=== PATIENT | male | born 1980 | race Caucasian/White ===

== ENCOUNTER 2021-11-17 11:21 | Outpatient (REF) | payer OTHER, SELFPAY ==
[2021-11-17 13:26] LABS: COVID-19 Test Positive (Negative)
== END 2021-11-17 11:22 | disposition home or self-care (01) ==
LOC: HO.LAB 11:21
PROVIDERS: Visit Provider Internal Medicine
DX: Z20.822 Contact with and (suspected) exposure to COVID-19 (principal)
CPT/HCPCS: 87635; C9803

== ENCOUNTER 2023-10-28 14:33 | Emergency (ER) | payer OTHER, SELFPAY ==
--- NOTE | ~2023-10-28 | CT_ITS ---
EXAMINATION: CT SOFT TISSUE NECK WITH CONTRAST CLINICAL INFORMATION: Right lower dental bicuspid pain. Rule out dental abscess. COMPARISON: None available. TECHNIQUE: Following the intravenous administration of 100 mL of Omnipaque 350 intravenous contrast, helical imaging was performed in the axial plane with generation of coronal and sagittal reformatted images. This CT examination was performed using dose optimization techniques as appropriate, variously including the following: *Automated exposure control *Adjustment of mA and/or kV according to patient size (this includes techniques or standardized protocols for targeted exams where dose is matched to indication/reason for exam; i.e. extremities or head) *Use of iterative reconstruction technique DLP: 793 mGy-cm FINDINGS: Visualized intracranial brain parenchyma appears normal. The optic globes, optic nerve and the bony orbits are intact. The paranasal sinuses are well aerated with small polyps or retention cyst bilateral sphenoid, left maxillary sinuses. The mastoid air cells are well-aerated. Bilateral TM joints are symmetric and normal. The mandible is intact. There are dental filling defects along the opposing surfaces of right lower bicuspids and left second bicuspid and first premolar tooth. There is small area of right than left cyst measuring 2.5 cm in length and approximately 4 mm in depth on axial slice 64/3. This results in mild right buccal soft tissue swelling/edema. No serous fluid collection or abscess seen along the alveolar side. There is moderate superficial and deep soft tissue swelling adjacent to the right mandible. Several dental amalgam related fillings are seen throughout the maxilla and mandible lytic the oropharynx and the oral cavity appears unremarkable. The parapharyngeal space is normal. Visualized bilateral parotid, submandibular glands and the thyroid lobes are symmetrical and normal. Small bilateral neck lymph nodes are seen.. The airways widely patent. The lung apices are clear. The thoracic arch appears unremarkable. Pression: Significant dental caries along the lower jaw teeth. There is small right lower mandibular buccal abscess with moderate soft tissue edema/cellulitis. Small polyps/retention cyst in the sinuses as described above. Reactive nonsuspicious bilateral reactive neck lymph nodes.
[2023-10-28 14:37] VITALS: BP 175/112; PULSE 108; RESP 18; TEMP 36.5; O2SAT 99; BMI 34.3
--- NOTE | 2023-10-28 14:37 | ED.DENTAL ---
HPI - Dental/Oral General Chief complaint: Dental/Oral Stated complaint: Tooth infection Time Seen by Provider: 10/28/23 16:38 Source: patient Mode of arrival: ambulatory Limitations: no limitations History of Present Illness HPI Narrative: 42 year old male with no significant pmhx presents to the ED today for evaluation of right lower dental pain x3 days. Reports dental pain 2 wks ago after cracking his tooth. At that time he took an unknown dosage of his friend's penicillin pills hoping that would help. He was not evaluated by medical personnel at that time. His dental pain seemed to resolve however began worsening over the last 3 days. Reports swelling to the right side of his face/ neck. Has been taking motrin at home without relief of pain. 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 Denies fever chills, dysphagia, odynophagia. Does not follow with a dentist regularly. Related Data Previous Rx's Medication Instructions Recorded amoxicillin 875 mg-potassium 1 tab PO BID 14 days #28 tabs 10/28/23 clavulanate 125 mg tablet Allergies Allergy/AdvReac Type Severity Reaction Status Date / Time No Known Allergies Allergy Unverified 07/22/20 17:17 Review of Systems Review of Systems: Constitutional: No fever, chills, fatigue, night sweats, weight changes ENT/Mouth: No ear pain, hearing loss, nasal congestion, sinus pain, rhinorrhea, sore throat, +dental pain Eyes: No eye pain, swelling, redness, vision changes, discharge Cardio: No chest pain, palpitations, MATHUR, orthopnea, peripheral edema Pulm: No SOB, cough, sputum, wheezing, dyspnea, hemoptysis GI: No nausea, vomiting, hematemesis, abdominal pain, diarrhea, constipation, hematochezia, melena : No irregular bleeding, dysuria, frequency, urgency, hesitancy, hematuria, flank pain, urinary flow changes, urinary incontinence or retention MSK: No back pain, neck pain, joint pain, myalgias Skin: No lesions, rashes Neuro: No weakness, numbness, paresthesias, LOC, dizziness, headache All other systems reviewed and are negative. [facility] Past Medical History Attestation statement: The following information was validated with the patient. Source: old records reviewed and nursing notes reviewed Social History Social History Smoked in Last 30 Days: Yes Use of substances other than those prescribed or required for medical reasons: No Advance Directives: No Advance Directives Information Provided: Yes Physical Exam Vital Signs: Vital Signs: Last Vital Signs Temp 98.2 F 10/28/23 19:13 Pulse 78 10/28/23 21:44 Resp 20 10/28/23 19:13 BP 159/78 H 10/28/23 21:44 Pulse Ox 98 10/28/23 19:13 O2 Del Method Room Air 10/28/23 19:13 BMI result Body Mass Index 34.3 Vital signs notable for tachycardia and hypertension Const: General: cooperative, comfortable, no acute distress, alert and awake Orientation/consciousness: patient oriented x3 Limitations: no limitations HEENT: Other: + No facial edema. Tongue and lips wnl + multiple dental caries and poor dentition. right lower 1st bicuspid with periapical swelling. Edema noted to right buccal mucosa. Minimal edema to lingual ginginva. No pointing. No active bleeding/ discharge. TTP. No palpable fluctuance. + Posterior oropharynx without erythema/edema. Uvula midline. Controlling secretions and speaking in complete sentences + No submandublar or submental LAD + right cervical LAD Head: Yes normal to inspection Ears: hearing grossly normal bilaterally, external ears normal, TM's normal bilaterally, EAC's normal, mastoids normal and no periauricular adenopathy Eyes: General: appearance normal, both eyes and all related structures Conjunctivae: conjunctivae normal Sclerae: sclerae normal Neck: Neck: Yes normal visual inspection Resp: Effort & Inspection: normal respiratory effort Auscultation: clear to auscultation bilaterally Cardio: Rate: regular rate Rhythm: regular rhythm Peripheral pulses: radial pulses present Skin: General skin exam: no rashes or lesions noted Neuro: General: patient oriented x3, gait normal and moves all extremities Extrem: General: Yes normal to inspection Course Course Course Narrative: This is an RME: Additional HPI, ROS, PE not included below will be deferred to primary provider. Patient is a 42-year-old male who presents emergency department for evaluation of dental pain right lower, reports friend had penicillin, he took some for 4 days, unknown dosage, noticed some improvement, but worse over the past few days. Has pain, swelling, known dental caries. Does not follow a dentist regularly. Denies neck pain, chest pain, ear pain, fevers, chills. Noted to be hypertensive today 175/112, denies hx of HTN. Plan: labs, placed in WR pending bed availability. Reevaluation(s) Reevaluation #1: 1655-- CBC with slight leukocytosis to 14.7. No left shift. Chemistry without acute electrolyte abnormality requiring intervention. Renal function WNL. Liver function WNL. Concern for infection at this time. Vital signs notable for tachycardia to 108. Afebrile. Will obtain lactic acid and blood cultures. IV antibiotics ordered. Fluids ordered. Awaiting CT soft tissue/facial bones. 1938-- CT soft tissues neck showing significant dental caries along the lower jaw teeth and small right lower mandibular buccal abscess with moderate soft tissue edema/cellulitis. They are reactive nonsuspicious bilateral neck lymph nodes. On exam, there is no appreciable fluctuance along the right pupil mucosa to indicate abscess that would warrant drainage. >> Discussed case with my attending physician Dr. Staples who agrees with outpatient treatment with oral antibiotics and dentist follow-up. >> informed patient of CT results. Patient states that he is still having dental discomfort. He completed dose of Unasyn in the ED. will send amoxicillin to patient's pharmacy for dental infection. >> patient also noted to be hypertensive in ED. denies current diagnosis of hypertension. Does not currently take medications for this. BP noted to be elevated after IV fluid administration BP likely additionally elevated secondary to pain and IV fluids. Will give a dose of losartan in recheck BP. 2038-- repeat blood pressure 186/116. Discussed case with my colleagues, Titi RAMÍREZ who patient will be signed out to pending repeat blood pressure and disposition. Reevaluation #2: Blood pressure improved. Patient informed to document his blood pressure in the morning and afternoon and show them to PCP to see if he should be started on meds. IN ED elevated blood pressure most likely due to pain. Patient has no neuro symptosm. Safe for discharge. Time: 09:53 Medications Administered Discontinued Medications Generic Name Dose Route Start Last Admin Trade Name Freq PRN Reason Stop Dose Admin Acetaminophen 975 mg 10/28/23 22:09 10/28/23 22:13 Acetaminophen 325 Mg Tablet PO 10/28/23 22:10 975 mg ONCE ONE Administration Ampicillin Sodium/Sulbactam 100 mls @ 200 mls/hr 10/28/23 16:52 10/28/23 20:28 Sodium 3 gm/ Sodium Chloride IV 10/28/23 17:21 Infused ONCE ONE Infusion Sodium Chloride 3,840 mls @ 3,840 mls/hr 10/28/23 16:55 10/28/23 20:28 Ns 30 ml/kg infuse over 1 hr (3840 ml) 10/28/23 17:54 Infused IV Infusion .Q1H STA Iohexol 100 ml 10/28/23 17:29 10/28/23 17:29 Iohexol 350 Mg/Ml 100 Ml Infus..Btl IV 10/28/23 17:30 70 ml ONCE ONE Administration Ketorolac Tromethamine 30 mg 10/28/23 16:53 10/28/23 18:16 Ketorolac Tromethamine 30 Mg/Ml Vial IVPUSH 10/28/23 16:54 30 mg ONCE ONE Administration Losartan Potassium 25 mg 10/28/23 19:46 10/28/23 20:06 Losartan Potassium 25 Mg Tablet PO 10/28/23 19:47 25 mg ONCE ONE Administration Protocol Medical Decision Making Medical Decision Making MDM Narrative: 42 year old male with no significant pmhx presents to the ED today for evaluation of right lower dental pain x3 days. Vital signs notable for tachycardia. Hypertensive. Afebrile. No facial edema. Tongue and lips wnl. There are multiple dental caries and poor dentition. right lower 1st bicuspid with periapical swelling. Edema noted to right buccal mucosa. Minimal edema to lingual ginginva. No pointing. No active bleeding/ discharge. TTP. No palpable fluctuance. Posterior oropharynx without erythema/edema. Uvula midline. Controlling secretions and speaking in complete sentences. No submandublar or submental LAD. there is right cervical LAD. Clinical concern for dental/ periapical abscess/infection, apthous stomatitis. Unlikely mono, herpes, sialadenitis, sialolithiasis, UNDERWRITING SALES REPRESENTATIVE, retropharyngeal abscess, deep neck infection, osteomyelitis, facial cellulitis/ abscess, lymphoma. Plan for pain control, imaging, abx, and re-evaluation. Differential Diagnosis Differential Diagnoses: The differential diagnosis associated with the presentation includes as above. Admission/Observation Consideration of admission/observation: Escalation of care including admission/observation considered In this patient with dental abscess and increased WBC count, admission was considered. Lab Data MDM Lab Attestation statement: I reviewed the patient's lab results. as above. 10/28/23 15:06 10/28/23 15:06 Labs: Lab Results 10/28/23 10/28/23 Range/Units 15:06 17:12 WBC 14.7 H (4.8-10.8) X10*3/uL RBC 5.19 (4.60-5.80) X10*6/uL Hgb 16.7 (14.0-18.0) g/dl Hct 48.2 (42.0-52.0) % MCV 92.9 (80.0-98.0) fL MCH 32.2 (27.0-33.0) pg MCHC 34.6 (31.0-36.0) g/dl RDW 12.1 (11.0-16.0) % Plt Count 158 L (160-400) X10*3/uL MPV 11.5 (9.4-12.4) fL Immature Gran % (Auto) 0.3 (0.0-0.4) % Neut % (Auto) 76.5 H (45-73) % Lymph % (Auto) 11.0 L (20-40) % [place] % (Auto) 8.1 (2-11) % Eos % (Auto) 3.7 (0-4) % Baso % (Auto) 0.4 (0-2) % Lymph # (Auto) 1.6 (1.2-4.9) X10*3/uL [place] # (Auto) 1.2 (0.1-1.2) X10*3/uL Eos # (Auto) 0.6 H (0.0-0.4) X10*3/uL Baso # (Auto) 0.1 (0.0-0.2) X10*3/uL Abs Immat Gran (auto) 0.05 H (0.00-0.03) X10*3/uL Absolute Neuts (auto) 11.2 H (2.0-8.3) x10*3/uL Absolute Nucleated RBC 0.000 (0.0-0.012) X10*3/uL Nucleated RBC % (auto) 0.0 (0.0-0.2) /100WBC Sodium 143 (135-145) mmol/L Potassium 4.0 (3.3-5.1) mmol/L Chloride 110 H (96-108) mmol/L Carbon Dioxide 24 (22-29) mmol/L Anion Gap 13 (12-20) BUN 12 (9-16) mg/dL Creatinine 0.92 (0.5-1.4) mg/dL Estim Creat Clear Calc 154.3 Estimated GFR > 60 Random Glucose 104 (60-115) mg/dL Lactic Acid 0.8 (0.5-2.0) mmol/L Calcium 9.8 (8.4-10.2) mg/dL Total Bilirubin 0.7 (0.0-1.0) mg/dL AST 20 (5-37) U/L ALT 40 (0-40) U/L Alkaline Phosphatase 85 (39-117) U/L Total Protein 7.5 (6.5-8.0) g/dL Albumin 4.2 (3.5-5.0) g/dL Independent Interpretation I performed an independent interpretation of an: EKG and CT Scan Interpretation: EKG showing normal sinus rhythm with a rate of 88 beats per minute, QT 344, QTC 416, 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 CT soft tissue neck showing soft tissue edema, agree with radiologist's interpretation. Radiology Impression Discussion of test interpretation with radiology: I have reviewed the radiologist's reading. Radiologist Impression: CT soft tissue neck with con: Visualized intracranial brain parenchyma appears normal. The optic globes, optic nerve and the bony orbits are intact. The paranasal sinuses are well aerated with small polyps or retention cyst bilateral sphenoid, left maxillary sinuses. The mastoid air cells are well-aerated. Bilateral TM joints are symmetric and normal. The mandible is intact. There are dental filling defects along the opposing surfaces of right lower bicuspids and left second bicuspid and first premolar tooth. There is small area of right than left cyst measuring 2.5 cm in length and approximately 4 mm in depth on axial slice 64/3. This results in mild right buccal soft tissue swelling/edema. No serous fluid collection or abscess seen along the alveolar side. There is moderate superficial and deep soft tissue swelling adjacent to the right mandible. Several dental amalgam related fillings are seen throughout the maxilla and mandible lytic the oropharynx and the oral cavity appears unremarkable. The parapharyngeal space is normal. Visualized bilateral parotid, submandibular glands and the thyroid lobes are symmetrical and normal. Small bilateral neck lymph nodes are seen.. The airways widely patent. The lung apices are clear. The thoracic arch appears unremarkable. Impression: Significant dental caries along the lower jaw teeth. There is small right lower mandibular buccal abscess with moderate soft tissue edema/cellulitis. Small polyps/retention cyst in the sinuses as described above. Reactive nonsuspicious bilateral reactive neck lymph nodes. External Record Review External record reviewed: Inpatient record Prescription Management I considered prescription management with: Pain Medication and Antibiotic Chronic Conditions Patient?s care impacted by: Other (dental caries) Critical Care Time Critical Care Time Critical Care Time: Yes Total Critical Care Time: 40 Attestation: Critical care time in the amount of 40 minutes has been provided to the patient in terms of direct patient care, frequent reevaluation, review and interpretation of medical data and results, and management of potentially life-threatening conditions. This is all outside of any medical procedures. Discharge Plan Discharge Clinical Impression: Dental abscess, Hypertension Patient Disposition: Home, Self-Care Instructions: Dental Abscess (ED), Root Canal (DC) Additional Instructions: You have a dental abscess. Augmentin is an antibiotic that has been sent to your pharmacy. Take this as prescribed and do not miss any doses as infection can worsen or return. YOU NEED TO FOLLOW-UP WITH A DENTIST. YOU HAVE BEEN PROVIDED WITH A REFERRAL. CALL THEM TO MAKE AN APPOINTMENT. THEY WILL NOT CALL YOU. If symptoms persist or worsen despite antibiotic treatment, please return to the emergency department. The case of an emergency call 911. Additionally were noted to have high blood pressure in the emergency department. Losartan is an antihypertensive that has been sent to your pharmacy. Take this daily to help normalize your blood pressure. YOU NEED TO FOLLOW-UP WITH A PRIMARY CARE PROVIDER. YOU HAVE BEEN PROVIDED WITH A REFERRAL FOR 1. CALL THEM TO MAKE AN APPOINTMENT. THEY WILL NOT CALL YOU. If you began to develop chest pain, dizziness, headache, vision changes, palpitations please return to the emergency department. In the case of an emergency call 911. Prescriptions: New amoxicillin-pot clavulanate 875-125 mg tablet 1 tab PO BID 14 Days Qty: 28 0RF [place]: [facility] [place] [facility] [place] [facility] [place] Group] Maude Reyes DMD, MS [Dentist] - Interventions: ED Discharge Assessment Last Done: 10/28/23 22:29 Discharge Date/Time: 10/28/23 22:29 Print Language: [place]
--- NOTE | 2023-10-28 14:43 | ECG_ITS ---
Test Reason : HTN Blood Pressure : / mmHG Vent. Rate : 088 BPM Atrial Rate : 088 BPM P-R Int : 152 ms QRS Dur : 078 ms QT Int : 344 ms P-R-T Axes : 027 -05 012 degrees QTc Int : 416 ms Normal sinus rhythm Possible Left atrial enlargement Inferior infarct (cited on or before 13-AUG-2017) Anterior infarct (cited on or before 13-AUG-2017) Abnormal ECG When compared with ECG of 13-AUG-2017 01:49, Questionable change in initial forces of Anteroseptal leads Referred By: Suni Lang Electronically Signed By:ANIYAH FRIED MD
[2023-10-28 15:17] LABS: MANUAL DIFF FLAG NO
[2023-10-28 15:18] LABS: Basophils Absolute Auto 0.1 X10*3/uL (0.0-0.2); Basophils Percent Auto 0.4 % (0-2); Eosinophils Absolute Auto 0.6 X10*3/uL (0.0-0.4); Eosinophils Percent Auto 3.7 % (0-4); Hematocrit 48.2 % (42.0-52.0); Hemoglobin 16.7 g/dl (14.0-18.0); Imm Gran Abs Auto 0.05 X10*3/uL (0.00-0.03); Imm Gran Pct Auto 0.3 % (0.0-0.4); Lymphocytes Absolute Auto 1.6 X10*3/uL (1.2-4.9); Mean Corpuscular HGB Conc 34.6 g/dl (31.0-36.0); Mean Corpuscular Hemoglobin 32.2 pg (27.0-33.0); Mean Corpuscular Volume 92.9 fL (80.0-98.0); Mean Platelet Volume 11.5 fL (9.4-12.4); Monocytes Absolute Auto 1.2 X10*3/uL (0.1-1.2); Monocytes Percent Auto 8.1 % (2-11); Neutrophils Absolute Auto 11.2 x10*3/uL (2.0-8.3); Neutrophils Percent Auto 76.5 % (45-73); Platelet Count 158 X10*3/uL (160-400); Red Blood Count 5.19 X10*6/uL (4.60-5.80); Red Cell Distribution Width 12.1 % (11.0-16.0); White Blood Count 14.7 X10*3/uL (4.8-10.8)
[2023-10-28 15:32] LABS: Alanine Aminotransferase 40 U/L (0-40); Albumin Level 4.2 g/dL (3.5-5.0); Alkaline Phosphatase 85 U/L (39-117); Anion Gap 13 (12-20); Aspartate Amino Transferase 20 U/L (5-37); Bilirubin Total 0.7 mg/dL (0.0-1.0); Blood Urea Nitrogen 12 mg/dL (9-16); Calcium 9.8 mg/dL (8.4-10.2); Carbon Dioxide 24 mmol/L (22-29); Chloride 110 mmol/L (96-108); Creatinine Clr Calc Pharmacy 154.3; Estimated Glomerular Filt Rate > 60; Glucose Random 104 mg/dL (60-115); Sodium 143 mmol/L (135-145); Total Protein 7.5 g/dL (6.5-8.0)
--- NOTE | 2023-10-28 16:55 | ED.DENTAL ---
HPI - Dental/Oral General Chief complaint: Dental/Oral Stated complaint: Tooth infection Time Seen by Provider: 10/28/23 16:38 Related Data Allergies Allergy/AdvReac Type Severity Reaction Status Date / Time No Known Allergies Allergy Unverified 07/22/20 17:17 [facility] Social History Social History Advance Directives: No Advance Directives Information Provided: Yes Physical Exam Vital Signs: Vital Signs: Last Vital Signs Temp 97.7 F 10/28/23 14:37 Pulse 108 H 10/28/23 14:37 Resp 18 10/28/23 14:37 BP 175/112 H 10/28/23 14:37 Pulse Ox 99 10/28/23 14:37 O2 Del Method Room Air 10/28/23 14:37 BMI result Body Mass Index 34.3 Course Course Course Narrative: 165-- CBC with slight leukocytosis to 14.7. No left shift. Chemistry without acute electrolyte abnormality requiring intervention. Renal function WNL. Liver function WNL. concern for infection at this time. Vital signs notable for tachycardia to 108. Afebrile. Will obtain lactic acid and blood cultures. IV antibiotics ordered. Fluids ordered. Awaiting CT soft tissue/facial bones. Medical Decision Making Lab Data 10/28/23 15:06 10/28/23 15:06 Labs: Lab Results 10/28/23 Range/Units 15:06 WBC 14.7 H (4.8-10.8) X10*3/uL RBC 5.19 (4.60-5.80) X10*6/uL Hgb 16.7 (14.0-18.0) g/dl Hct 48.2 (42.0-52.0) % MCV 92.9 (80.0-98.0) fL MCH 32.2 (27.0-33.0) pg MCHC 34.6 (31.0-36.0) g/dl RDW 12.1 (11.0-16.0) % Plt Count 158 L (160-400) X10*3/uL MPV 11.5 (9.4-12.4) fL Immature Gran % (Auto) 0.3 (0.0-0.4) % Neut % (Auto) 76.5 H (45-73) % Lymph % (Auto) 11.0 L (20-40) % [place] % (Auto) 8.1 (2-11) % Eos % (Auto) 3.7 (0-4) % Baso % (Auto) 0.4 (0-2) % Lymph # (Auto) 1.6 (1.2-4.9) X10*3/uL [place] # (Auto) 1.2 (0.1-1.2) X10*3/uL Eos # (Auto) 0.6 H (0.0-0.4) X10*3/uL Baso # (Auto) 0.1 (0.0-0.2) X10*3/uL Abs Immat Gran (auto) 0.05 H (0.00-0.03) X10*3/uL Absolute Neuts (auto) 11.2 H (2.0-8.3) x10*3/uL Absolute Nucleated RBC 0.000 (0.0-0.012) X10*3/uL Nucleated RBC % (auto) 0.0 (0.0-0.2) /100WBC Sodium 143 (135-145) mmol/L Potassium 4.0 (3.3-5.1) mmol/L Chloride 110 H (96-108) mmol/L Carbon Dioxide 24 (22-29) mmol/L Anion Gap 13 (12-20) BUN 12 (9-16) mg/dL Creatinine 0.92 (0.5-1.4) mg/dL Estim Creat Clear Calc 154.3 Estimated GFR > 60 Random Glucose 104 (60-115) mg/dL Calcium 9.8 (8.4-10.2) mg/dL Total Bilirubin 0.7 (0.0-1.0) mg/dL AST 20 (5-37) U/L ALT 40 (0-40) U/L Alkaline Phosphatase 85 (39-117) U/L Total Protein 7.5 (6.5-8.0) g/dL Albumin 4.2 (3.5-5.0) g/dL
[2023-10-28 17:29] LABS: Lactic Acid 0.8 mmol/L (0.5-2.0)
[2023-10-28] MEDS: iohexoL 350 MG/ML 100 ML INFUS..BTL IV (17:29)
[2023-10-28] MEDS: Ampicillin Sodium/Sulbactam Na 3 GM in 0.9 % Sodium Chloride 100 ML IV (18:00)
[2023-10-28] MEDS: Ketorolac Tromethamine 30 MG/ML VIAL IVPUSH (18:16)
[2023-10-28 19:13] VITALS: BP 192/129; PULSE 88; RESP 20; TEMP 36.8; O2SAT 98
[2023-10-28] MEDS: Losartan Potassium 25 MG TABLET PO (20:06)
[2023-10-28 20:33] VITALS: BP 186/116; PULSE 86
[2023-10-28 21:44] VITALS: BP 159/78; PULSE 78
[2023-10-28] MEDS: Acetaminophen 325 MG TABLET 975 MG PO (22:13)
--- NOTE | 2023-10-28 22:28 | PC.NURSE ---
pt medicated according to mar for 06/14 pain. pt calm and cooperative. pt ambulatory at discharge. pt provided with discharge packet. pt verbalized understanding of discharge plan
== END 2023-10-28 22:29 | disposition home or self-care (01) ==
PROVIDERS: Nurse Practitioner Family; Physician Assistant Medical; Emergency Provider Emergency Medicine
DX: K04.7 Periapical abscess without sinus (principal); K02.9 Dental caries, unspecified; I10 Essential (primary) hypertension
CPT/HCPCS: 36415; 70491; 80053; 83605; 85025; 87040; 93005; 96361; 96374; 96375; 99285; J0295; J1885; Q9967

== ENCOUNTER → 2023-10-28 14:43 | Outpatient (BNV) | payer OTHER, MEDICAID, SELFPAY | PROVIDERS: Emergency Provider Emergency Medicine; Visit Provider Internal Medicine Cardiovascular Disease | DX: I10 Essential (primary) hypertension (principal) | CPT/HCPCS: 93010 ==

== ENCOUNTER 2024-11-03 04:34 | Emergency (ER) | payer OTHER, SELFPAY ==
--- NOTE | ~2024-11-03 | XR_ITS ---
CLINICAL HISTORY: chest pain 2 view chest x-ray Comparison: CR - CHEST 2 VIEWS [id number] - 08/13/2017 04:06 AM EDT Findings: Lungs are well inflated. Mediastinal contours, cardiac silhouette, and pulmonary vasculature are within normal limits. No focal areas of consolidation. No rib fracture, pneumothorax, or pleural effusion IMPRESSION: 1. No acute findings. This document has been electronically signed by: Choco Barnes MD on 11/03/2024 07:51:29
[2024-11-03 04:39] VITALS: BP 160/100; PULSE 99; O2SAT 99
[2024-11-03 04:43] VITALS: BP 149/97; PULSE 86; RESP 20; TEMP 37; O2SAT 99; BMI 35.1
[2024-11-03 06:00] VITALS: BP 139/98; PULSE 89; RESP 15; TEMP 36.4; O2SAT 99
--- NOTE | 2024-11-03 06:41 | ED_ITS ---
HPI - General Adult General Chief complaint: Anxiety Stated complaint: ANXIETY Time Seen by Provider: 11/03/24 06:38 Source: patient and EMS Mode of arrival: EMS Limitations: no limitations History of Present Illness ED Provider: Shira Vizcaino PA-C HPI narrative: Patient is a 43 year old assigned male at with a history of tobacco use presenting to the emergency department today with episodes of palpations. Patient states that he was drinking alcohol last night and woke up early this morning with intermittent palpitations. Patient states that he went outside and took a few drags of his cigarette but the palpitations continued. Patient states that they have improved somewhat since being here but have not resolved. Patient denies any dizziness, lightheadedness, abdominal pain, nausea, vomiting, fever, chills, blurry vision, double vision, loss of vision, chest pain, difficulty breathing, shortness of breath, back pain, night sweats, pain with urination, increased urinary frequency, increased urinary urgency, blood in his urine or stool, syncope or a near syncopal episode, recent trauma or falls, bowel incontinence, bladder incontinence, or any other complaints at this time. Relieving factors: none Exacerbating factors: none Associated symptoms: denies other symptoms Treatments prior to arrival: none Related Data Previous Rx's ?Medication ?Instructions ?Recorded amoxicillin 875 mg-potassium 1 tab PO BID 14 days #28 tabs 10/28/23 clavulanate 125 mg tablet Allergies Allergy/AdvReac Type Severity Reaction Status Date / Time No Known Allergies Allergy Unverified 11/03/24 04:45 Review of Systems 2 Constitutional: Constitutional: Reports no additional constitutional complaints, Denies chills, Denies fever(s) and Denies night sweats Eyes: Eyes: Reports no additional eye complaints, Denies blurry vision, Denies change in vision, Denies diplopia, Denies eye discharge, Denies loss of vision and Denies eye pain ENT: Denies dizziness Cardiovascular: Cardiovascular: Reports no additional cardiovascular complaints, Denies chest pain, Denies lightheadedness, Denies Loss of Consciousness, Reports palpitations and Denies dyspnea Respiratory: Respiratory: Reports no additional respiratory complaints and Denies dyspnea Gastrointestinal: Gastrointestinal: Reports no additional gastrointestinal complaints, Denies abdominal pain, Denies melena, Denies hematochezia, Denies change in bowel habits and Denies change in stool character Genitourinary: Genitourinary: Reports no additional male genitourinary complaints, Denies hematuria, Denies oliguria, Denies difficulty urinating, Denies dysuria, Denies urinary frequency, Denies urinary hesitancy, Denies urinary incontinence and Denies urinary urgency Musculoskeletal: Musculoskeletal: Reports no additional musculoskeletal complaints, Denies numbness and Denies tingling Neurologic: Denies dizziness, Denies loss of vision, Denies numbness and Denies tingling Psychiatric: Psychiatric: Reports no additional psychiatric complaints Endocrine: Endocrine: Reports no additional endocrine complaints and Reports palpitations Hematologic/Lymphatic: Hematologic/Lymphatic: Reports no additional hematologic/lymphatic complaints Allergic/Immunologic: Allergic/Immunologic: Reports no additional allergic/immunologic complaints PMFSH Past Medical History Attestation statement: The following information was validated with the patient. Source: old records reviewed and nursing notes reviewed Social History Social History Substance Use Type: Marijuana Physical Exam ED Vital Signs: Vital Signs - 24 hr 11/03/24 04:43 11/03/24 06:00 11/03/24 08:59 Temperature 98.6 F 97.6 F 97.6 F Pulse Rate 86 89 89 Respiratory Rate 20 15 15 Blood Pressure 149/97 H 139/98 H 139/98 H Pulse Oximetry 99 99 99 Oxygen Delivery Method Room Air Room Air Room Air BMI result Body Mass Index 35.1 Const General: cooperative, no acute distress, alert and awake Nutritional Appearance: well nourished Orientation/consciousness: patient oriented x3 Limitations: no limitations [facility] Head: Yes normal to inspection and Yes atraumatic Ears: hearing grossly normal bilaterally and external ears normal General nose exam: Normal external nose present, no nasal discharge noted and no epistaxis Face and sinus: Yes normal facial exam, No abrasion and No laceration Mouth: Normal oral and palatal mucosa present, no drooling and no muffled voice Eyes General: appearance normal, both eyes and all related structures Periorbital: periorbital findings normal Eyelids: Yes eyelids normal Conjunctivae: conjunctivae normal Pupils: Equal, round and reactive pupils present EOM: EOMs intact bilaterally Neck Neck: Yes normal visual inspection, Yes full ROM and Yes no lymphadenopathy Chest Chest palpation & inspection: normal inspection of the chest Resp Effort & Inspection: normal respiratory effort and able to speak in complete sentences GI Inspection: Yes normal to inspection Neuro General: patient oriented x3 and moves all extremities Cranial nerves: Yes Equal, round and reactive pupils present Cognition (Neuro): normal cognition Extrem General: Yes normal to inspection, Yes full ROM and Yes capillary refill normal Psych Appearance: grossly normal Mental Status: mental status grossly normal Affect: normal affect Attitude: cooperative Thought process: Normal thought process present Thought content: Normal thought content present Insight: Good insight present (Psych) Medications Administered Discontinued Medications Generic Name Dose Route Start Last Admin Trade Name Vani PRN Reason Stop Dose Admin Lorazepam 2 mg 11/03/24 06:51 11/03/24 07:02 Lorazepam 1 Mg Tablet PO 11/03/24 06:52 2 mg ONCE ONE Administration Medical Decision Making Medical Decision Making [facility] Narrative: Patient is a 43 year old assigned male at with a history of tobacco use presenting to the emergency department today with episodes of palpations. Patient's physical exam was unremarkable. Patient's blood work was unremarkable. Patient's EKG was unremarkable. Patient's chest x-ray showed no acute process. I explained my physical exam findings as well as all test results to the patient. I answered all questions asked by the patient. I stressed the importance of the patient taking his medication as directed (either prescribed or as the over the counter packaging recommends). I stressed the importance of the patient following up with his primary care provider. I stressed the importance of the patient returning to the emergency department immediately if his symptoms were to worsen or if he were to develop any dizziness, shortness of breath, difficulty breathing, chest pain, blurry vision, loss of vision, nausea, vomiting, abdominal pain, fever, chills, back pain, or any other complaints. Patient verbalized agreement and understanding with this treatment plan and discharge. Differential Diagnosis Differential Diagnoses: The differential diagnosis associated with the presentation includes Palpitations Anxiety NSTEMI STEMI Admission/Observation Consideration of admission/observation: Escalation of care including admission/observation considered Patient would have been admitted to the hospital had his work up had any findings where hospital admission was appropriate and his clinical presentation warranted hospital admission. Lab Data [facility] Lab Attestation statement: I reviewed the patient's lab results. My interpretation of these results are in the [facility] Rationale portion of this note. 11/03/24 07:08 11/03/24 07:08 Labs: Lab Results 11/03/24 Range/Units 07:08 WBC 9.1 (4.8-10.8) X10*3/uL RBC 5.38 (4.60-5.80) X10*6/uL Hgb 17.6 (14.0-18.0) g/dl Hct 49.7 (42.0-52.0) % MCV 92.4 (80.0-98.0) fL MCH 32.7 (27.0-33.0) pg MCHC 35.4 (31.0-36.0) g/dl RDW 12.0 (11.0-16.0) % Plt Count 145 L (160-400) X10*3/uL MPV 12.3 (9.4-12.4) fL Immature Gran % (Auto) 0.4 (0.0-0.4) % Neut % (Auto) 64.2 (45-73) % Lymph % (Auto) 20.0 (20-40) % [place] % (Auto) 9.6 (2-11) % Eos % (Auto) 4.7 H (0-4) % Baso % (Auto) 1.1 (0-2) % Lymph # (Auto) 1.8 (1.2-4.9) X10*3/uL [place] # (Auto) 0.9 (0.1-1.2) X10*3/uL Eos # (Auto) 0.4 (0.0-0.4) X10*3/uL Baso # (Auto) 0.1 (0.0-0.2) X10*3/uL Abs Immat Gran (auto) 0.04 H (0.00-0.03) X10*3/uL Absolute Neuts (auto) 5.8 (2.0-8.3) x10*3/uL Absolute Nucleated RBC 0.000 (0.0-0.012) X10*3/uL Nucleated RBC % (auto) 0.0 (0.0-0.2) /100WBC Sodium 142 (135-145) mmol/L Potassium 4.2 (3.3-5.1) mmol/L Chloride 111 H (96-108) mmol/L Carbon Dioxide 21 L (22-29) mmol/L Anion Gap 14 (12-20) BUN 11 (9-16) mg/dL Creatinine 0.87 (0.5-1.4) mg/dL Estim Creat Clear Calc 163.3 Estimated GFR > 60 Random Glucose 118 H (60-115) mg/dL Calcium 9.0 D (8.4-10.2) mg/dL Magnesium 2.1 (1.6-2.6) mg/dL Total Bilirubin 0.6 (0.0-1.0) mg/dL AST 83 H (5-37) U/L ALT 108 H (0-40) U/L Alkaline Phosphatase 82 (39-117) U/L Troponin I High Sens < 2.7 (<3.5-35.0) ng/L Total Protein 7.7 (6.5-8.0) g/dL Albumin 4.4 (3.5-5.0) g/dL Influenza Type A (PCR) NEGATIVE (Negative) Influenza Type B (PCR) NEGATIVE (Negative) RSV RNA Qual (PCR) NEGATIVE (Negative) SARS-CoV-2 RNA (RT-PCR) NEGATIVE (Negative) Independent Interpretation I performed an independent interpretation of an: EKG and Plain X-Ray Interpretation: My interpretation is in agreement with the radiologist's impression of this imaging study. L CLINICAL HISTORY: chest pain 2 view chest x-ray Comparison: CR - CHEST 2 VIEWS [id number] - 08/13/2017 04:06 AM EDT Findings: Lungs are well inflated. Mediastinal contours, cardiac silhouette, and pulmonary vasculature are within normal limits. No focal areas of consolidation. No rib fracture, pneumothorax, or pleural effusion IMPRESSION: 1. No acute findings. This document has been electronically signed by: Choco Barnes MD on 11/03/2024 07:51:29 Dictated By: Choco Barnes MD Signed By: Electronically signed by Choco Barnes MD 11/03/24 0752 Vent. Rate: 094 BPM Atrial Rate: 094 BPM P-R Int 146 ms QRS Dur: 084 ms QT Int: 342 ms P-R-T Axes: 026 -04 014 degrees QTc Int: 427 ms Normal sinus rhythm Inferior infarct (cited on or before 13-AUG-2017) Anteroseptal infarct (cited on or before 13-AUG-2017) When compared with ECG of 28-OCT-2023 15:02, Questionable change in initial forces of Septal leads Referred By: Shira Vizcaino Electronically Signed By:PATRICK FRIED MD Dictated By: Patrick Fried MD Signed By: Electronically signed by Patrick Fried MD 11/03/24925 Radiology Impression Discussion of test interpretation with radiology: I have reviewed the radiologist's reading. Independent Historian Clinical information obtained from an independent historian. History obtained from or confirmed by: EMS (EMS provided additional history and confirmed the history provided by the patient.) Discharge Plan Discharge Clinical Impression: Palpitations Patient Disposition: Home, Self-Care Instructions: Heart Palpitations (DC) Additional Instructions: Your work up today was reassuring. Please consider smoking cessation. Follow up with your primary care provider. Return to the emergency department immediately if your symptoms worsen or if you develop any dizziness, shortness of breath, difficulty breathing, chest pain, blurry vision, loss of vision, nausea, vomiting, abdominal pain, fever, chills, back pain, or any other complaints. Prescriptions: No Action amoxicillin-pot clavulanate 875-125 mg tablet 1 tab PO BID 14 Days Qty: 28 0RF Referrals: Albaro Li MD [Primary Care Provider] - Stand Alone Forms: Work/School Release Interventions: ED Discharge Assessment Last Done: 11/03/24 08:59 Discharge Date/Time: 11/03/24 09:00 Print Language: Yakut
--- NOTE | 2024-11-03 06:51 | ECG_ITS ---
Test Reason : cp Blood Pressure : / mmHG Vent. Rate : 094 BPM Atrial Rate : 094 BPM P-R Int : 146 ms QRS Dur : 084 ms QT Int : 342 ms P-R-T Axes : 026 -04 014 degrees QTc Int : 427 ms Normal sinus rhythm Inferior infarct (cited on or before 13-AUG-2017) Anteroseptal infarct (cited on or before 13-AUG-2017) Abnormal ECG When compared with ECG of 28-OCT-2023 15:02, Questionable change in initial forces of Septal leads Referred By: Shira Vizcaino Electronically Signed By:ANIYAH FRIED MD
[2024-11-03] MEDS: LORazepam 1 MG TABLET 2 MG PO (07:02)
[2024-11-03 07:12] LABS: MANUAL DIFF FLAG NO
[2024-11-03 07:13] LABS: Basophils Absolute Auto 0.1 X10*3/uL (0.0-0.2); Basophils Percent Auto 1.1 % (0-2); Eosinophils Absolute Auto 0.4 X10*3/uL (0.0-0.4); Eosinophils Percent Auto 4.7 % (0-4); Hematocrit 49.7 % (42.0-52.0); Hemoglobin 17.6 g/dl (14.0-18.0); Imm Gran Abs Auto 0.04 X10*3/uL (0.00-0.03); Imm Gran Pct Auto 0.4 % (0.0-0.4); Lymphocytes Absolute Auto 1.8 X10*3/uL (1.2-4.9); Mean Corpuscular HGB Conc 35.4 g/dl (31.0-36.0); Mean Corpuscular Hemoglobin 32.7 pg (27.0-33.0); Mean Corpuscular Volume 92.4 fL (80.0-98.0); Mean Platelet Volume 12.3 fL (9.4-12.4); Monocytes Absolute Auto 0.9 X10*3/uL (0.1-1.2); Monocytes Percent Auto 9.6 % (2-11); Neutrophils Absolute Auto 5.8 x10*3/uL (2.0-8.3); Neutrophils Percent Auto 64.2 % (45-73); Platelet Count 145 X10*3/uL (160-400); Red Blood Count 5.38 X10*6/uL (4.60-5.80); White Blood Count 9.1 X10*3/uL (4.8-10.8)
[2024-11-03 07:26] LABS: Alanine Aminotransferase 108 U/L (0-40); Albumin Level 4.4 g/dL (3.5-5.0); Alkaline Phosphatase 82 U/L (39-117); Anion Gap 14 (12-20); Aspartate Amino Transferase 83 U/L (5-37); Bilirubin Total 0.6 mg/dL (0.0-1.0); Blood Urea Nitrogen 11 mg/dL (9-16); Carbon Dioxide 21 mmol/L (22-29); Chloride 111 mmol/L (96-108); Creatinine Clr Calc Pharmacy 163.3; Estimated Glomerular Filt Rate > 60; Glucose Random 118 mg/dL (60-115); Magnesium 2.1 mg/dL (1.6-2.6); Potassium 4.2 mmol/L (3.3-5.1); Sodium 142 mmol/L (135-145); Total Protein 7.7 g/dL (6.5-8.0)
[2024-11-03 07:35] LABS: Troponin-I High Sensitivity < 2.7 ng/L (<3.5-35.0)
[2024-11-03 07:51] LABS: Influenza A PCR NEGATIVE (Negative); Influenza B PCR NEGATIVE (Negative); Resp Syncy Virus RNA Qual PCR NEGATIVE (Negative); SARS COV2 PCR INHOUSE NEGATIVE (Negative)
[2024-11-03 08:59] VITALS: BP 139/98; PULSE 89; RESP 15; TEMP 36.4; O2SAT 99
== END 2024-11-03 09:00 | disposition home or self-care (01) ==
PROVIDERS: Physician Assistant Medical; Emergency Provider Emergency Medicine; PCP Internal Medicine Medical Oncology
DX: R00.2 Palpitations (principal); Z03.818 Encounter for observation for suspected exposure to other biological agents ruled out
CPT/HCPCS: 0241U; 71046; 80053; 83735; 84484; 85025; 93005; 99283; 99284

== ENCOUNTER → 2024-11-03 06:51 | Outpatient (BNV) | payer OTHER, SELFPAY | PROVIDERS: Emergency Provider Emergency Medicine; PCP Internal Medicine Medical Oncology; Visit Provider Internal Medicine Cardiovascular Disease | DX: R94.31 Abnormal electrocardiogram [ECG] [EKG] (principal) | CPT/HCPCS: 93010 ==

== ENCOUNTER → 2024-11-03 06:51 | Outpatient (BNV) | payer OTHER, SELFPAY | PROVIDERS: Emergency Provider Emergency Medicine; PCP Internal Medicine Medical Oncology; Visit Provider Radiology Diagnostic Radiology | DX: R07.9 Chest pain, unspecified (principal) | CPT/HCPCS: 71046 ==